=== PATIENT | female | born 1940 | race Caucasian/White ===

== ENCOUNTER 2017-04-20 18:33 | Inpatient (IN) | payer OTHER ==
[2017-04-20 19:03] VITALS: BMI 18.8
--- NOTE | 2017-04-20 19:40 | PDOC ---
History of Present Illness - General Chief Complaint: Revisit,Radiology Variance Stated Complaint: ABNORMAL LABS Time Seen by Provider: 04/20/17 19:37 - History of Present Illness Initial Comments: 04/20/17 20:41 Patient is a 76 year old female with a history of HTN, Dementia, GERD, PVD, COPD who presents via EMS following a fall at a rehab center. She reports that she lost her balance in the bathroom and fell onto her hip. Per rehab notes sent with the patient, the patient was found sitting in the bathroom following the fall. She received a hip radiograph which demonstrated a slightly displaced left intertrochanter fracture and was sent to the ED for further evaluation. She reports left hip pain and decreased range of motion secondary to pain. She denies any numbness or tingling in her lower extremities. She denies any other symptoms including chest pain, SOB, abdominal pain, or changes with urination or bowel movements. Past History - Past Medical History Allergies/Adverse Reactions: Allergies Allergy/AdvReac Type Severity Reaction Status Date / Time No Known Allergies Allergy Verified 04/20/17 20:44 Home Medications: Ambulatory Orders Aa/Hydrolyzed Collagen, Whey [Lps Neutral Flavor Liquid] 30 ml PO DAILY Acetaminophen [Pain Relief] 650 mg PO TID PRN 04/20/17 Albuterol 2.5/Ipratropium 0.5 [Duoneb -] 1 neb IH TID 04/20/17 Ascorbic Acid [Vitamin C -] 500 mg PO TID 04/20/17 Bacitracin 30 gm TP DAILY 04/20/17 Clopidogrel Bisulfate [Plavix -] 75 mg PO DAILY 04/20/17 Docusate Sodium 100 mg PO HS 04/20/17 Famotidine 20 mg PO DAILY 04/20/17 Ferrous Sulfate 325 mg PO TID 04/20/17 Melatonin 6 mg PO HS 04/20/17 Memantine HCl [Namenda -] 5 mg PO BID 04/20/17 Multivit with Iron-Minerals [Complete Senior] 1 each PO DAILY 04/20/17 Nadolol 40 mg PO DAILY 04/20/17 Oxybutynin Chloride 5 mg PO BID 04/20/17 Oxycodone HCl 5 mg PO TID PRN 04/20/17 Sennosides [Senna] 8.6 mg PO HS 04/20/17 Sucralfate [Carafate -] 1 gm PO QID 04/20/17 Trazodone HCl 50 mg PO HS 04/20/17 Cardiac Disorders: No (hypokalemia) COPD: Yes Other medical history: osteoporosis. - Psycho/Social/Smoking Cessation Hx Anxiety: No Suicidal Ideation: No Smoking History: Never smoked Have you smoked in the past 12 months: No Information on smoking cessation initiated: No Hx Alcohol Use: No Drug/Substance Use Hx: No Substance Use Type: None Review of Systems - Review of Systems Constitutional: No: Chills, Fever Respiratory: No: Cough, Shortness of Breath Cardiac (ROS): No: Chest Pain, Lightheadedness, Palpitations ABD/GI: No: Constipated, Diarrhea, Nausea, Vomiting : No: Dysuria Integumentary: No: Rash Neurological: No: Headache, Numbness, Tingling, Weakness *Physical Exam - Vital Signs Last Vital Signs Temp Pulse Resp BP Pulse Ox 101.2 F H 77 18 198/91 100 04/20/17 18:35 04/20/17 18:35 04/20/17 18:35 04/20/17 18:35 04/20/17 18:35 - Physical Exam Comments: 04/20/17 20:57 General Appearance: Nourished. No Apparent Distress HEENT: No Pharyngeal Erythema, Tonsillar Exudate, Tonsillar Erythema Respiratory/Chest: Lungs Clear, Normal Breath Sounds. No Rales, Rhonchi, Wheezing Cardiovascular: Regular Rhythm, Regular Rate. No Murmur, Gallop/S3, Gallop/S4 Gastrointestinal/Abdominal: Normal Bowel Sounds, Soft. No Guarding, Rebound, Tenderness Extremity: Normal Capillary Refill, Pain on ranging of the left hip. Sensation to light touch and temperature intact in the distal extremities Integumentary: Normal Color, Dry, Warm Neurologic: Alert, Normal Mood/Affect, Normal Response ED Treatment Course - LABORATORY CBC & Chemistry Diagram: 04/20/17 20:00 04/20/17 20:00 Medical Decision Making - Medical Decision Making 04/20/17 21:32 Patient is a 76 year old female who presents with left hip pain following an unwitnessed mechanical fall. Patient is febrile here in the ED and given her fever we will work her up for possible sepsis including a cbc, cmp, lactate, chest radiograph and UA. We will obtain imaging of her hip given the outside report of a hip fracture. We will also get a head ct to rule out any intracranial process. 04/21/17 01:52 Patient's labs including cbc, cmp, lactate, and UA are unremarkable with no elevated WBC or lactate. Chest radiograph is unremarkable and head CT doesn't demonstrate any acute process. Hip radiographs demonstrate an acute intertrochanteric fracture as preliminarily read by our healthcare administration intern radiologist. We believe the patient requires admission and will discuss with the admitting physician. 04/21/17 03:05 Discussed the case with Dr. Delgadillo who agreed with admission of the patient. We will order an orthopedic consultation as well. *DC/Admit/Observation/Transfer Diagnosis at time of Disposition: Fever of unknown origin Hip fracture Qualifiers: Encounter type: initial encounter Fracture type: closed Laterality: left Qualified Code(s): S72.002A - Fracture of unspecified part of neck of left femur , initial encounter for closed fracture - Discharge Dispostion Condition at time of disposition: Stable Admit: Yes - Referrals Referrals: Marbin Couch MD [Primary Care Provider] - - Attestations Physician Attestion: 04/21/17 03:05 I, Dr. Barrie Castellanos, attest that this document has been prepared under my direction and personally reviewed by me in its entirety. I further attest, that it accurately reflects all work, treatment, procedures and medical decision -making performed by me.
[2017-04-20] MEDS ORDERED: ACETAMINOPHEN INJECTION 100 ML IVPB ONE (20:04)
[2017-04-20] MEDS ORDERED: ACETAMINOPHEN 1000 MG/100 ML VIAL (NON FORMULARY) IVPB ONE (20:13)
[2017-04-20] MEDS ORDERED: SODIUM CHLORIDE 1,000 ML IV STA (20:13)
[2017-04-20 20:30] LABS: BASOPHIL 0.1 % (0-2.0); EOSINOPHIL 0.3 % (0-4.5); MCH 27.8 pg (25.7-33.7); MCHC 32.5 g/dl (32.0-36.0); MEAN CELL VOLUME 85.5 fl (80-96); MEAN PLT VOLUME 9.8 fl (7.5-11.1); NEUTROPHILS 77.4 % (42.8-82.8); PLATELET COUNT 232 K/MM3 (134-434); RDW 14.4 % (11.6-15.6); WHITE BLOOD COUNT 8.7 K/mm3 (4.0-10.0)
[2017-04-20 20:34] LABS: VENOUS BLOOD GAS HCO3 25.7 meq/L (19-25); VENOUS PH 7.37 (7.32-7.42)
[2017-04-20 20:47] LABS: URINE APPEARANCE CLEAR; URINE BILIRUBIN NEGATIVE (NEGATIVE); URINE BLOOD 1+ (NEGATIVE); URINE COLOR STRAW; URINE GLUCOSE (UA) NEGATIVE (NEGATIVE); URINE KETONE TRACE (NEGATIVE); URINE LEUK ESTERASE NEGATIVE (NEGATIVE); URINE NITRITE NEGATIVE (NEGATIVE); URINE UROBILINOGEN NEGATIVE mg/dL (0.2-1.0)
[2017-04-20 20:52] LABS: ALBUMIN 3.5 g/dl (3.4-5.0); ANION GAP 10 (8-16); BILIRUBIN,TOTAL 0.6 mg/dL (0.2-1.0); CALCIUM 9.2 mg/dL (8.5-10.1); CO2 27 mmol/L (21-32); CREATININE 0.5 mg/dL (0.55-1.02); GLUCOSE,RANDOM 109 mg/dL (74-106); SGOT/AST 16 U/L (15-37); SGPT/ALT 16 U/L (12-78); TOT PROT 7.5 g/dl (6.4-8.2)
--- NOTE | 2017-04-20 20:53 | PDOC ---
Attending Attestation - Resident Resident Name: Barrie Castellanos - ED Attending Attestation I have performed the following: I have examined & evaluated the patient, The case was reviewed & discussed with the resident, I agree w/resident's findings & plan, Exceptions are as noted - HPI HPI: 04/20/17 20:51 Agree with the resident's HPI as documented in the electronic medical record. - Physicial Exam PE: 04/20/17 20:51 Agree with the resident's physical examination as documented in the electronic medical record. - Medical Decision Making 04/20/17 20:51 76-year-old female long-term resident with history of dementia, hypertension , GERD, COPD who presents the emergency department for evaluation status post unwitnessed fall this morning with resultant left hip fracture. The patient is febrile in the emergency department to 101.2F. Differential diagnosis includes but is not limited to: Sepsis, UTI versus pneumonia, traumatic left hip fracture , dehydration, electrolyte abnormality, toxic/metabolic derangement. Plan: 1. Labs 2. Chest x-ray 3. Plain films of pelvis and left hip 4. Urine analysis and urine culture 4. Blood cultures 5. IV antibiotics 6. IV fluids for hydration 7. Antipyretics 8. Pain management 9. Admit 10. Orthopedics consult 11. Observe and reevaluate
[2017-04-20 20:54] LABS: ALK PHOS 95 U/L (45-117); CPK 20 IU/L (26-192); TROPONIN I < 0.02 ng/ml (0.00-0.05)
[2017-04-20 20:58] LABS: URINE PROTEIN 1+ (NEGATIVE)
[2017-04-20 20:59] LABS: URINE RBC 2 /hpf (0-3); URINE WBC 1 /hpf (3-5)
[2017-04-20 21:03] LABS: INR 1.2 (0.82-1.09); PROTHROMBIN TIME (PATIENT) 13.2 SEC (9.98-11.88)
[2017-04-20 21:05] LABS: ACTIVATED PTT 34.1 SECONDS (26.9-34.4)
[2017-04-20] MEDS ORDERED: PIPERACILLIN/TAZOB 3.375 GM 3.375 GM in DEXTROSE 5%-WATER - 50 ML IVPB ONE (21:18)
[2017-04-20] MEDS ORDERED: PIPERACILLIN/TAZOB 3.375 GM 50 ML IVPB ONE (21:53)
[2017-04-21] MEDS ORDERED: oxyCODONE HCL 5 MG TABLET PO PRN (03:42)
[2017-04-21] MEDS ORDERED: ACETAMINOPHEN 325 MG TABLET (FP) PO PRN (03:46)
[2017-04-21] MEDS ORDERED: FERROUS SO4 325 MG TABLET (FP) ONE (05:54)
[2017-04-21] MEDS ORDERED: ALBUTEROL SO4 2.5/IPRATROPIUM 0.5 INH SOL 3 ML VIAL.NEB. NEB ONE (05:54)
[2017-04-21] MEDS ORDERED: ALBUTEROL SO4 2.5/IPRATROPIUM 0.5 INH SOL 3 ML VIAL.NEB. NEB SCH (06:00)
[2017-04-21] MEDS ORDERED: FERROUS SO4 325 MG TABLET (FP) PO SCH (06:00)
[2017-04-21] MEDS: ASCORBIC ACID 500 MG TABLET (FP) PO SCH ×3 (06:09→21:47)
[2017-04-21 08:03] LABS: BASOPHIL 0.4 % (0-2.0); EOSINOPHIL 3.7 % (0-4.5); MCH 28.6 pg (25.7-33.7); MCHC 33.9 g/dl (32.0-36.0); MEAN CELL VOLUME 84.3 fl (80-96); MEAN PLT VOLUME 8.8 fl (7.5-11.1); NEUTROPHILS 67.7 % (42.8-82.8); PLATELET COUNT 202 K/MM3 (134-434); RDW 14.8 % (11.6-15.6); WHITE BLOOD COUNT 7.3 K/mm3 (4.0-10.0)
[2017-04-21 08:19] LABS: ALBUMIN 3.1 g/dl (3.4-5.0); ALK PHOS 85 U/L (45-117); ANION GAP 9 (8-16); BILIRUBIN,TOTAL 0.6 mg/dL (0.2-1.0); CALCIUM 8.9 mg/dL (8.5-10.1); CO2 27 mmol/L (21-32); CREATININE 0.6 mg/dL (0.55-1.02); GLUCOSE,RANDOM 99 mg/dL (74-106); SGOT/AST 12 U/L (15-37); TOT PROT 6.6 g/dl (6.4-8.2)
[2017-04-21 08:23] LABS: INR 1.26 (0.82-1.09); PROTHROMBIN TIME (PATIENT) 13.9 SEC (9.98-11.88)
[2017-04-21 08:25] LABS: ACTIVATED PTT 33.4 SECONDS (26.9-34.4)
[2017-04-21 08:27] LABS: SGPT/ALT 14 U/L (12-78)
[2017-04-21 08:37] LABS: MAGNESIUM 1.7 mg/dL (1.8-2.4)
--- NOTE | 2017-04-21 08:43 | HP ---
Admitting History and Physical - Primary Care Physician PCP: Marbin Couch - Admission Chief Complaint: S/P Fall hip pain History of Present Illness: 76 yo female with significant past medical history of hypertension, dementia, overactive bladder, right foot infection, admitted to [facility], s/p fall with left intertrochanteric fracture. Patient seen and examined. C/O Pain left hip joint. Denies chest pain, shortness of breath, palpitation or dizziness. Denies headache or blurring of vision. Denies dysuria or hematuria. Denies nausea, vomiting, abdominal pain. H/O right hip surgery 10 yrs back. Patient had low grade fever last night. She received a dose of zosyn in the ER last night and now on rocephin. 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 - Smoking History Smoking history: Never smoked Have you smoked in the past 12 months: No - Alcohol/Substance Use Hx Alcohol Use: No Home Medications - Allergies Allergies/Adverse Reactions: Allergies Allergy/AdvReac Type Severity Reaction Status Date / Time No Known Allergies Allergy Verified 04/20/17 20:44 - Home Medications Home Medications: Ambulatory Orders Aa/Hydrolyzed Collagen, Whey [Lps Neutral Flavor Liquid] 30 ml PO DAILY Acetaminophen [Pain Relief] 650 mg PO TID PRN 04/20/17 Albuterol 2.5/Ipratropium 0.5 [Duoneb -] 1 neb IH TID 04/20/17 Ascorbic Acid [Vitamin C -] 500 mg PO TID 04/20/17 Bacitracin 30 gm TP DAILY 04/20/17 Clopidogrel Bisulfate [Plavix -] 75 mg PO DAILY 04/20/17 Docusate Sodium 100 mg PO HS 04/20/17 Famotidine 20 mg PO DAILY 04/20/17 Ferrous Sulfate 325 mg PO TID 04/20/17 Melatonin 6 mg PO HS 04/20/17 Memantine HCl [Namenda -] 5 mg PO BID 04/20/17 Multivit with Iron-Minerals [Complete Senior] 1 each PO DAILY 04/20/17 Nadolol 40 mg PO DAILY 04/20/17 Oxybutynin Chloride 5 mg PO BID 04/20/17 Oxycodone HCl 5 mg PO TID PRN 04/20/17 Sennosides [Senna] 8.6 mg PO HS 04/20/17 Sucralfate [Carafate -] 1 gm PO QID 04/20/17 Trazodone HCl 50 mg PO HS 04/20/17 Review of Systems - Review of Systems Constitutional: reports: Fever Eyes: reports: No Symptoms HENT: reports: No Symptoms Neck: reports: No Symptoms Cardiovascular: reports: No Symptoms Respiratory: reports: No Symptoms Gastrointestinal: reports: No Symptoms Genitourinary: reports: No Symptoms Musculoskeletal: reports: Extremity Pain, Joint Pain Neurological: reports: No Symptoms Endocrine: reports: No Symptoms Hematology/Lymphatic: reports: No Symptoms Psychiatric: reports: No Symptoms Physical Examination Vital Signs: Vital Signs Temperature 97.6 F 04/21/17 06:00 Pulse Rate 58 L 04/21/17 06:00 Respiratory Rate 18 04/21/17 06:00 Blood Pressure 153/79 04/21/17 06:00 O2 Sat by Pulse Oximetry (%) 100 04/21/17 06:00 Constitutional: Yes: Anxious Eyes: Yes: Conjunctiva Clear, PERRL HENT: Yes: Atraumatic, Normocephalic Neck: Yes: Supple, Trachea Midline Cardiovascular: Yes: Regular Rate and Rhythm Respiratory: Yes: Regular, CTA Bilaterally Gastrointestinal: Yes: Normal Bowel Sounds, Soft Musculoskeletal: Yes: Joint Swelling Edema: No Peripheral Pulses WNL: Yes Neurological: Yes: Alert, Oriented ...Motor Strength: WNL Psychiatric: Yes: WNL Labs: CBC, BMP 04/21/17 07:36 04/21/17 07:36 Imaging - Results Chest X-ray: Report Reviewed X-ray: Report Reviewed Problem List - Problems (1) Intertrochanteric fracture of left femur Assessment/Plan: S/P Fall. Ortho consulted. Patient scheduled for surgery later today. There are no absolute medical contraindications for the surgery. Patient is medically cleared for the surgery. Code(s): S72.142A - DISPLACED INTERTROCHANTERIC FRACTURE OF LEFT FEMUR, INIT (2) Hypertension Assessment/Plan: High. Continue Nadolol 40 mg daily. Code(s): I10 - ESSENTIAL (PRIMARY) HYPERTENSION (3) Fever of unknown origin Assessment/Plan: Low grade last night. None since morning. Wbc - normal. Urine culture/blood culture sent. Chest x ray - Nil acute. Patient is asymptomatic. Received a dose of zosyn last night. On rocephin now. Will continue to monitor. Code(s): R50.9 - FEVER, UNSPECIFIED (4) Hypokalemia Assessment/Plan: Repleted. Code(s): E87.6 - HYPOKALEMIA
[2017-04-21] MEDS ORDERED: BACITRACIN 15 GM TUBE TOPICAL OINTMENT TP SCH (10:00)
[2017-04-21] MEDS ORDERED: MULTIVITAMINS THER W-MINERALS COMBO TABLET (FP) PO SCH (10:00)
[2017-04-21] MEDS ORDERED: CLOPIDOGREL BISULFATE 75 MG TABLET (FP) PO SCH (10:00)
[2017-04-21] MEDS ORDERED: CEFTRIAXONE 50 ML IVPB SCH (10:00)
[2017-04-21] MEDS ORDERED: RANITIDINE HCL 150 MG TABLET (FP) PO SCH (10:00)
[2017-04-21] MEDS ORDERED: SUCRALFATE 1 GM TABLET (FP) PO SCH (10:00)
[2017-04-21] MEDS ORDERED: MEMANTINE HCL 5 MG TABLET (UD) PO SCH (10:00)
[2017-04-21] MEDS ORDERED: NADOLOL 40 MG TABLET (FP) PO SCH (10:00)
[2017-04-21] MEDS ORDERED: CEFTRIAXONE 50 ML ONE (10:57)
[2017-04-21] MEDS ORDERED: oxyCODONE HCL 5 MG TABLET ONE (10:57)
[2017-04-21] MEDS ORDERED: POTASSIUM CHLORIDE 20 MEQ PREMIX IVPB 100 ML IVPB SCH (11:15)
--- NOTE | 2017-04-21 12:25 | EKG ---
Test Reason : Blood Pressure : / mmHG Vent. Rate : 065 BPM Atrial Rate : 065 BPM P-R Int : 152 ms QRS Dur : 084 ms QT Int : 444 ms P-R-T Axes : 067 041 023 degrees QTc Int : 461 ms NORMAL SINUS RHYTHM POSSIBLE LEFT ATRIAL ENLARGEMENT LEFT VENTRICULAR HYPERTROPHY POSSIBLE INFERIOR INFARCT , AGE UNDETERMINED NONSPECIFIC ST ABNORMALITY ABNORMAL ECG NO PREVIOUS ECGS AVAILABLE REPEAT EKG IF CLINICALLY INDICATED Confirmed by HENRIK FAN MD ([id number]) on 04/21/2017 12:25:19 PM Referred By: Confirmed By:HENRIK FAN MD
[2017-04-21] MEDS ORDERED: KCL 10 MEQ IVPB 100 ML IVPB SCH (12:30)
[2017-04-21] MEDS ORDERED: KCL 10 MEQ IVPB 100 ML IVPB ONE (13:19)
--- NOTE | 2017-04-21 13:53 | CON.ORTH ---
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 - Alcohol/Substance Use Hx Alcohol Use: No - Smoking History Smoking history: Never smoked Have you smoked in the past 12 months: No Home Medications - Allergies Allergies/Adverse Reactions: Allergies Allergy/AdvReac Type Severity Reaction Status Date / Time No Known Allergies Allergy Verified 04/20/17 20:44 - Home Medications Home Medications: Ambulatory Orders Aa/Hydrolyzed Collagen, Whey [Lps Neutral Flavor Liquid] 30 ml PO DAILY Acetaminophen [Pain Relief] 650 mg PO Q6H PRN 04/20/17 Albuterol 2.5/Ipratropium 0.5 [Duoneb -] 1 neb IH TID 04/20/17 Ascorbic Acid [Vitamin C -] 500 mg PO TID 04/20/17 Bacitracin 30 gm TP DAILY 04/20/17 Clopidogrel Bisulfate [Plavix -] 75 mg PO DAILY 04/20/17 Docusate Sodium 100 mg PO HS 04/20/17 Famotidine 20 mg PO DAILY 04/20/17 Ferrous Sulfate 325 mg PO TID 04/20/17 Melatonin 6 mg PO HS 04/20/17 Memantine HCl [Namenda -] 5 mg PO BID 04/20/17 Multivit with Iron-Minerals [Complete Senior] 1 each PO DAILY 04/20/17 Nadolol 40 mg PO DAILY 04/20/17 Oxybutynin Chloride 5 mg PO BID 04/20/17 Oxycodone HCl 5 mg PO TID PRN 04/20/17 Sennosides [Senna] 8.6 mg PO HS 04/20/17 Sucralfate [Carafate -] 1 gm PO QID 04/20/17 Trazodone HCl 50 mg PO HS 04/20/17 Physical Exam for Ortho Vital Signs: Vital Signs Temperature 98.5 F 04/21/17 07:30 Pulse Rate 66 04/21/17 10:15 Respiratory Rate 18 04/21/17 10:15 Blood Pressure 169/69 04/21/17 10:15 O2 Sat by Pulse Oximetry (%) 97 04/21/17 10:15 Labs: CBC, BMP 04/21/17 07:36 04/21/17 07:36 INR, PTT INR 1.26 (0.82-1.09) H 04/21/17 07:36 - Lower Extremity Hip: Yes: Left, Decreased ROM, Leg Externally Rotated, Leg Shortened, Pain, Swelling, Other (nvi) Imaging - Results X-ray: Report Reviewed, Image Reviewed Assessment/Plan 76 year old female with a history of HTN, Dementia, GERD, PVD, COPD who presents via EMS following a fall at a rehab center. She reports that she lost her balance in the bathroom and fell onto her left hip. She reports left hip pain and decreased range of motion secondary to pain. She denies any numbness or tingling in her lower extremities. She denies any other symptoms including chest pain, SOB, abdominal pain, or changes with urination or bowel movements. a/p Left displaced IT fx Risks and benefits were d.w pt in detail OR for left IM gamma nail Pt is surgical cleared as per medicine NPO OR for this afternoon d/w Dr. Voss
[2017-04-21] MEDS ORDERED: LIDOCAINE HCL/PF 2% SDV 5ML VIAL ONE (15:34)
[2017-04-21] MEDS ORDERED: PROPOFOL 20 ML ONE (15:34)
[2017-04-21] MEDS ORDERED: ceFAZolin SODIUM 1 GM VIAL ONE (15:35)
[2017-04-21] MEDS ORDERED: ceFAZolin SODIUM 1 GM VIAL IVPB ONE (15:50)
--- NOTE | 2017-04-21 16:34 | OP ---
Operative Note - Note: Operative Date: 04/21/17 Pre-Operative Diagnosis: LEFT IT HIP FX Operation: LEFT GAMMA NAILING Post-Operative Diagnosis: Same as Pre-op Surgeon: Abiel Voss Anesthesia: General Estimated Blood Loss (mls): 0 Operative Report Dictated: Yes
--- NOTE | 2017-04-21 16:53 | SPEC ---
DATE OF OPERATION: 04/21/2017 OPERATION: Left Gamma nailing. PREOPERATIVE DIAGNOSIS: Left intertrochanteric hip fracture. POSTOPERATIVE DIAGNOSIS: Left intertrochanteric hip fracture. SURGEON: Abiel Voss M.D. ANESTHESIA: General LMA. CLOSURE: A short Gamma nail with appropriate interlocks. No. 1 Vicryl for fascia, 0-0 and 2-0 for subcutaneous, and ludivina for skin. ESTIMATED BLOOD LOSS: Negligible. COMPLICATIONS: None. CONDITION: Recovery room in stable condition. DESCRIPTION OF OPERATIVE PROCEDURE: The patient was taken to the operating room. Spinal anesthesia was administered by the anesthesiologist. IV antibiotic prophylaxis was administered prior to the case. Patient was fastened to the fracture table with all prominences well padded. The left hip fracture was reduced and confirmation of excellent reduction from the AP and lateral planes was established using the image intensifier. A small 1-inch incision was made at the greater tip of the greater trochanter. Hemostasis was achieved with Bovie cautery. Sharp dissection was carried through the fascia. The K-wire was drilled from the tip of the greater trochanter past the fracture, into the intramedullary canal. Proper placement confirmed the AP and lateral planes by using the image intensifier. This was overreamed with a proximal reamer using the tissue protector to protect the soft tissue in the region. A short Gamma nail was then malletted down into place into the intramedullary canal to the appropriate level. Using the outrigger and a small stab incision laterally, a Guidewire was drilled from one aspect of the femur through the femoral neck into the femoral head. Proper placement was confirmed of the AP and lateral planes using image intensifier. The wire was measured for length and was overreamed with a triple reamer and was screwed with the appropriate-length lag screw. Confirmation of appropriate depth was confirmed in the AP and lateral planes by using image intensifier. Traction was reduced. The compression device was used to compress the fracture and a screw was placed from above in a dynamic fashion. Again, using the outrigger and a small stab incision laterally, the distal locking screw was placed by drilling and an appropriate-sized screw. The outrigger was removed. Confirmation of excellent reduction was confirmed in the AP and lateral planes by using image intensifier with excellent position of the hardware. All incisions were irrigated with copious amounts of irrigation. The fascia was closed with 0 Vicryl, 2-0 for subcutaneous and 3-0 Monocryl subcuticular for skin. A sterile pressure dressing was applied. The patient was awakened from anesthesia and transferred to recovery room in stable condition. No complications. Estimated blood loss less than 100 mL. Ace [id number]
[2017-04-21] MEDS ORDERED: CEFAZOLIN 1 GM/D5W 50 ML IVPB SCH ×2 (18:00→23:00)
[2017-04-21] MEDS ORDERED: SODIUM CHLORIDE 500 ML IV ONE (19:00)
[2017-04-21] MEDS: LACTATED RINGERS SOLUTION 1,000 ML IV SCH (19:30)
[2017-04-21] MEDS: ALBUTEROL SO4 2.5/IPRATROPIUM 0.5 INH SOL 3 ML VIAL.NEB. NEB SCH (21:29)
[2017-04-21] MEDS: SENNOSIDES 8.6MG TABLET (FP) PO SCH (21:45)
[2017-04-21] MEDS: FERROUS SO4 325 MG TABLET (FP) PO SCH (21:45)
[2017-04-21] MEDS: SUCRALFATE 1 GM TABLET (FP) PO SCH (21:46)
[2017-04-21] MEDS: MEMANTINE HCL 5 MG TABLET (UD) PO SCH (21:46)
[2017-04-21] MEDS: oxyCODONE HCL 5 MG TABLET PO PRN (21:46)
[2017-04-21] MEDS: DOCUSATE SODIUM 100 MG CAPSULE (FP) PO SCH (21:46)
[2017-04-21] MEDS: traZODone HCL 50 MG TABLET (FP) PO SCH (21:47)
[2017-04-21] MEDS ORDERED: MELATONIN 1 MG, MELATONIN 5 MG PO SCH (22:00)
[2017-04-21] MEDS ORDERED: SENNOSIDES 8.6MG TABLET (FP) PO SCH (22:00)
[2017-04-21] MEDS ORDERED: DOCUSATE SODIUM 100 MG CAPSULE (FP) PO SCH (22:00)
[2017-04-21] MEDS ORDERED: traZODone HCL 50 MG TABLET (FP) PO SCH (22:00)
[2017-04-22] MEDS ORDERED: CEFAZOLIN 1 GM/D5W 50 ML IVPB SCH
[2017-04-22] MEDS: LACTATED RINGERS SOLUTION 1,000 ML IV SCH (01:12)
[2017-04-22] MEDS ORDERED: ceFAZolin SODIUM 1 GM VIAL ONE ×2 (01:16→09:51)
[2017-04-22] MEDS ORDERED: DEXTROSE 5%-WATER - 50 ML IVPB ONE ×2 (01:16→09:51)
[2017-04-22] MEDS: CEFAZOLIN 1 GM in DEXTROSE 5%-WATER - 50 ML IVPB SCH ×2 (01:18→09:59)
[2017-04-22] MEDS: ACETAMINOPHEN 325 MG TABLET (FP) PO PRN ×2 (01:18→20:10)
[2017-04-22] MEDS ORDERED: oxyCODONE HCL 5 MG TABLET PO ONE (01:30)
[2017-04-22] MEDS: ASCORBIC ACID 500 MG TABLET (FP) PO SCH ×3 (05:47→21:48)
[2017-04-22] MEDS: FERROUS SO4 325 MG TABLET (FP) PO SCH ×3 (05:47→21:47)
[2017-04-22] MEDS: ALBUTEROL SO4 2.5/IPRATROPIUM 0.5 INH SOL 3 ML VIAL.NEB. NEB SCH ×3 (06:09→22:30)
[2017-04-22 08:57] LABS: BASOPHIL 0.3 % (0-2.0); EOSINOPHIL 0.7 % (0-4.5); MCH 28.1 pg (25.7-33.7); MCHC 32.6 g/dl (32.0-36.0); MEAN CELL VOLUME 86.2 fl (80-96); MEAN PLT VOLUME 9.2 fl (7.5-11.1); NEUTROPHILS 67.9 % (42.8-82.8); PLATELET COUNT 187 K/MM3 (134-434); RDW 14.7 % (11.6-15.6); WHITE BLOOD COUNT 6.6 K/mm3 (4.0-10.0)
[2017-04-22 09:08] LABS: ALBUMIN 2.8 g/dl (3.4-5.0); ALK PHOS 73 U/L (45-117); ANION GAP 12 (8-16); BILIRUBIN,TOTAL 0.6 mg/dL (0.2-1.0); CALCIUM 8.8 mg/dL (8.5-10.1); CO2 23 mmol/L (21-32); CREATININE 0.6 mg/dL (0.55-1.02); GLUCOSE,RANDOM 87 mg/dL (74-106); SGOT/AST 14 U/L (15-37); SGPT/ALT 12 U/L (12-78)
[2017-04-22] MEDS: RANITIDINE HCL 150 MG TABLET (FP) PO SCH (09:58)
[2017-04-22] MEDS: MULTIVITAMINS THER W-MINERALS COMBO TABLET (FP) PO SCH (09:58)
[2017-04-22] MEDS: ASPIRIN 325 MG TABLET PO SCH (09:58)
[2017-04-22] MEDS: MEMANTINE HCL 5 MG TABLET (UD) PO SCH ×2 (09:59→21:49)
[2017-04-22] MEDS: SUCRALFATE 1 GM TABLET (FP) PO SCH ×5 (09:59→21:47)
[2017-04-22] MEDS: ENOXAPARIN NA (PORCINE) 40 MG/0.4 ML DISP.SYRIN SQ SCH (09:59)
[2017-04-22] MEDS ORDERED: CEFTRIAXONE 50 ML IVPB SCH (10:00)
[2017-04-22] MEDS ORDERED: ENOXAPARIN NA (PORCINE) 40 MG/0.4 ML DISP.SYRIN SQ SCH (10:00)
[2017-04-22] MEDS ORDERED: CEFTRIAXONE 1 GM in DEXTROSE 5%-WATER - 50 ML IVPB SCH (10:19)
--- NOTE | 2017-04-22 10:34 | PN ---
Progress Note (short form) - Note Progress Note: AVSS COMFORTABLE BANDAGES DRY AND INTACT CALF SOFT AND NT NVI HCT=28 IMP: DOING WELL PLAN: OOB, PT, DC PLANNING
--- NOTE | 2017-04-22 11:57 | PN ---
Progress Note (short form) - Note Progress Note: Patient seen and examined. POD#1 Awake, slightly confused. C/O Pain B/L lower extremities. Afebrile. Denies chest pain, shortness of breath, palpitation or dizziness. 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 - Smoking History Smoking history: Never smoked Have you smoked in the past 12 months: No - Alcohol/Substance Use Hx Alcohol Use: No Home Medications - Allergies Allergies/Adverse Reactions: Allergies Allergy/AdvReac Type Severity Reaction Status Date / Time No Known Allergies Allergy Verified 04/20/17 20:44 - Home Medications Home Medications: Ambulatory Orders Aa/Hydrolyzed Collagen, Whey [Lps Neutral Flavor Liquid] 30 ml PO DAILY Acetaminophen [Pain Relief] 650 mg PO TID PRN 04/20/17 Albuterol 2.5/Ipratropium 0.5 [Duoneb -] 1 neb IH TID 04/20/17 Ascorbic Acid [Vitamin C -] 500 mg PO TID 04/20/17 Bacitracin 30 gm TP DAILY 04/20/17 Clopidogrel Bisulfate [Plavix -] 75 mg PO DAILY 04/20/17 Docusate Sodium 100 mg PO HS 04/20/17 Famotidine 20 mg PO DAILY 04/20/17 Ferrous Sulfate 325 mg PO TID 04/20/17 Melatonin 6 mg PO HS 04/20/17 Memantine HCl [Namenda -] 5 mg PO BID 04/20/17 Multivit with Iron-Minerals [Complete Senior] 1 each PO DAILY 04/20/17 Nadolol 40 mg PO DAILY 04/20/17 Oxybutynin Chloride 5 mg PO BID 04/20/17 Oxycodone HCl 5 mg PO TID PRN 04/20/17 Sennosides [Senna] 8.6 mg PO HS 04/20/17 Sucralfate [Carafate -] 1 gm PO QID 04/20/17 Trazodone HCl 50 mg PO HS 04/20/17 Review of Systems - Review of Systems Constitutional: reports: Fever Eyes: reports: No Symptoms HENT: reports: No Symptoms Neck: reports: No Symptoms Cardiovascular: reports: No Symptoms Respiratory: reports: No Symptoms Gastrointestinal: reports: No Symptoms Genitourinary: reports: No Symptoms Musculoskeletal: reports: Extremity Pain, Joint Pain Neurological: reports: No Symptoms Endocrine: reports: No Symptoms Hematology/Lymphatic: reports: No Symptoms Psychiatric: reports: No Symptoms Physical Examination Vital Signs: Vital Signs Period Temp Pulse Resp BP Sys/Gonsalez Pulse Ox Last 24 Hr 97.3 F-99.9 F 57-86 12-22 102-182/48-92 95-100 Constitutional: Yes: Anxious Eyes: Yes: Conjunctiva Clear, PERRL HENT: Yes: Atraumatic, Normocephalic Neck: Yes: Supple, Trachea Midline Cardiovascular: Yes: Regular Rate and Rhythm Respiratory: Yes: Regular, CTA Bilaterally Gastrointestinal: Yes: Normal Bowel Sounds, Soft Musculoskeletal: Yes: Joint Swelling Edema: No Peripheral Pulses WNL: Yes Neurological: Yes: Alert, Oriented ...Motor Strength: WNL Psychiatric: Yes: WNL Labs: CBC, BMP 04/22/17 07:05 04/22/17 07:05 Imaging - Results Chest X-ray: Report Reviewed X-ray: Report Reviewed Problem List - Problems (1) Intertrochanteric fracture of left femur Assessment/Plan: S/P left gamma nailing. Pain management. Physical therapy. Code(s): S72.142A - DISPLACED INTERTROCHANTERIC FRACTURE OF LEFT FEMUR, INIT (2) Hypertension Assessment/Plan: Continue Nadolol 40 mg daily. Code(s): I10 - ESSENTIAL (PRIMARY) HYPERTENSION (3) Fever of unknown origin Assessment/Plan: Afberile. Prelim cultures - negative. Continue rocephin. Code(s): R50.9 - FEVER, UNSPECIFIED (4) Hypokalemia Assessment/Plan: Repleted. Code(s): E87.6 - HYPOKALEMIA Observe today. DC back to OR tomorrow. Problem List - Problems (1) Intertrochanteric fracture of left femur Code(s): S72.142A - DISPLACED INTERTROCHANTERIC FRACTURE OF LEFT FEMUR, INIT (2) Hypertension Code(s): I10 - ESSENTIAL (PRIMARY) HYPERTENSION (3) Fever of unknown origin Code(s): R50.9 - FEVER, UNSPECIFIED (4) Hypokalemia Code(s): E87.6 - HYPOKALEMIA
--- NOTE | 2017-04-22 12:56 | PN ---
Progress Note (short form) - Note Progress Note: Post op day#1.S/P Left hip gamma nailing under GA uneventful.Patient stable.No any anesthesia related problem.Patient DC from the anesthesia care.
[2017-04-22] MEDS ORDERED: PT OWN MED DRAWER 7, Y5N ONE (13:27)
[2017-04-22] MEDS: NADOLOL 40 MG TABLET (FP) PO SCH (15:07)
[2017-04-22] MEDS: oxyCODONE HCL 5 MG TABLET PO PRN (20:09)
[2017-04-22] MEDS: SENNOSIDES 8.6MG TABLET (FP) PO SCH (21:47)
[2017-04-22] MEDS: DOCUSATE SODIUM 100 MG CAPSULE (FP) PO SCH (21:47)
[2017-04-22] MEDS: traZODone HCL 50 MG TABLET (FP) PO SCH (21:48)
[2017-04-23] MEDS: oxyCODONE HCL 5 MG TABLET PO PRN ×3 (05:48→20:19)
[2017-04-23] MEDS: ASCORBIC ACID 500 MG TABLET (FP) PO SCH ×4 (05:48→22:09)
[2017-04-23] MEDS: ACETAMINOPHEN 325 MG TABLET (FP) PO PRN ×3 (05:48→18:14)
[2017-04-23] MEDS: FERROUS SO4 325 MG TABLET (FP) PO SCH ×4 (05:48→22:08)
[2017-04-23] MEDS: ALBUTEROL SO4 2.5/IPRATROPIUM 0.5 INH SOL 3 ML VIAL.NEB. NEB SCH ×3 (06:47→22:34)
[2017-04-23 07:53] LABS: BASOPHIL 0.3 % (0-2.0); EOSINOPHIL 2.6 % (0-4.5); MCH 28.2 pg (25.7-33.7); MCHC 33.5 g/dl (32.0-36.0); MEAN CELL VOLUME 84.2 fl (80-96); NEUTROPHILS 70.5 % (42.8-82.8); PLATELET COUNT 178 K/MM3 (134-434); RDW 14.7 % (11.6-15.6); WHITE BLOOD COUNT 6.6 K/mm3 (4.0-10.0)
[2017-04-23 08:28] LABS: ALBUMIN 2.4 g/dl (3.4-5.0); ALK PHOS 63 U/L (45-117); ANION GAP 9 (8-16); BILIRUBIN,TOTAL 0.5 mg/dL (0.2-1.0); CALCIUM 8.2 mg/dL (8.5-10.1); CO2 27 mmol/L (21-32); CREATININE 0.5 mg/dL (0.55-1.02); GLUCOSE,RANDOM 120 mg/dL (74-106); SGOT/AST 14 U/L (15-37); SGPT/ALT 9 U/L (12-78); TOT PROT 5.4 g/dl (6.4-8.2)
--- NOTE | 2017-04-23 09:10 | PN ---
Progress Note (short form) - Note Progress Note: Patient seen and examined. POD#2 Afebrile. Denies chest pain, shortness of breath, palpitation or dizziness. Limitations to Obtaining History: No Limitations - Past Medical History [employer]: Yes: Dementia Cardiovascular: Yes: HTN - Smoking History Smoking history: Never smoked Have you smoked in the past 12 months: No - Alcohol/Substance Use Hx Alcohol Use: No Home Medications - Allergies Allergies/Adverse Reactions: Allergies Allergy/AdvReac Type Severity Reaction Status Date / Time No Known Allergies Allergy Verified 04/20/17 20:44 - Home Medications Home Medications: Ambulatory Orders Aa/Hydrolyzed Collagen, Whey [Lps Neutral Flavor Liquid] 30 ml PO DAILY Acetaminophen [Pain Relief] 650 mg PO TID PRN 04/20/17 Albuterol 2.5/Ipratropium 0.5 [Duoneb -] 1 neb IH TID 04/20/17 Ascorbic Acid [Vitamin C -] 500 mg PO TID 04/20/17 Bacitracin 30 gm TP DAILY 04/20/17 Clopidogrel Bisulfate [Plavix -] 75 mg PO DAILY 04/20/17 Docusate Sodium 100 mg PO HS 04/20/17 Famotidine 20 mg PO DAILY 04/20/17 Ferrous Sulfate 325 mg PO TID 04/20/17 Melatonin 6 mg PO HS 04/20/17 Memantine HCl [Namenda -] 5 mg PO BID 04/20/17 Multivit with Iron-Minerals [Complete Senior] 1 each PO DAILY 04/20/17 Nadolol 40 mg PO DAILY 04/20/17 Oxybutynin Chloride 5 mg PO BID 04/20/17 Oxycodone HCl 5 mg PO TID PRN 04/20/17 Sennosides [Senna] 8.6 mg PO HS 04/20/17 Sucralfate [Carafate -] 1 gm PO QID 04/20/17 Trazodone HCl 50 mg PO HS 04/20/17 Review of Systems - Review of Systems Constitutional: reports: Fever Eyes: reports: No Symptoms HENT: reports: No Symptoms Neck: reports: No Symptoms Cardiovascular: reports: No Symptoms Respiratory: reports: No Symptoms Gastrointestinal: reports: No Symptoms Genitourinary: reports: No Symptoms Musculoskeletal: reports: Extremity Pain, Joint Pain Neurological: reports: No Symptoms Endocrine: reports: No Symptoms Hematology/Lymphatic: reports: No Symptoms Psychiatric: reports: No Symptoms Physical Examination Vital Signs: Vital Signs Period Temp Pulse Resp BP Sys/Gonsalez Pulse Ox Last 24 Hr 97.5 F-98.8 F 75-88 17-21 103-109/54-61 96 Constitutional: Yes: Anxious Eyes: Yes: Conjunctiva Clear, PERRL HENT: Yes: Atraumatic, Normocephalic Neck: Yes: Supple, Trachea Midline Cardiovascular: Yes: Regular Rate and Rhythm Respiratory: Yes: Regular, CTA Bilaterally Gastrointestinal: Yes: Normal Bowel Sounds, Soft Musculoskeletal: Yes: Joint Swelling Edema: No Peripheral Pulses WNL: Yes Neurological: Yes: Alert, Oriented ...Motor Strength: WNL Psychiatric: Yes: WNL Labs: CBC, BMP 04/23/17 06:00 Imaging - Results Chest X-ray: Report Reviewed X-ray: Report Reviewed Problem List - Problems (1) Intertrochanteric fracture of left femur Assessment/Plan: S/P left gamma nailing. POD#2 Pain management. Physical therapy. Code(s): S72.142A - DISPLACED INTERTROCHANTERIC FRACTURE OF LEFT FEMUR, INIT (2) Hypertension Assessment/Plan: Continue Nadolol 40 mg daily. Code(s): I10 - ESSENTIAL (PRIMARY) HYPERTENSION (3) Fever of unknown origin Assessment/Plan: Afberile. Prelim cultures - negative. Continue rocephin. Code(s): R50.9 - FEVER, UNSPECIFIED (4) Hypokalemia Assessment/Plan: Repleted. Code(s): E87.6 - HYPOKALEMIA 5) Anemia. Lorraine-operative blood loss minimal. No bleeding per rectum reported. Check stool for occult blood. Continue iron tid Check cbc afternoon. 6) UTI Culutres negative. Stop recephin. 7) Constipation Miralax now. 8) Hypokalemia KCL 40 meq one dose now. Check BMP afternoon and replete accordingly. Stop IV fluids. Problem List - Problems (1) Intertrochanteric fracture of left femur Code(s): S72.142A - DISPLACED INTERTROCHANTERIC FRACTURE OF LEFT FEMUR, INIT (2) Hypertension Code(s): I10 - ESSENTIAL (PRIMARY) HYPERTENSION (3) Fever of unknown origin Code(s): R50.9 - FEVER, UNSPECIFIED (4) Hypokalemia Code(s): E87.6 - HYPOKALEMIA
[2017-04-23] MEDS ORDERED: POLYETHYLENE GLYCOL 3350 119 GM BTL PO ONE (09:30)
[2017-04-23] MEDS ORDERED: POTASSIUM CHLORIDE TABS 20 MEQ TABLET.ER (FP) PO ONE (09:30)
[2017-04-23] MEDS ORDERED: PT OWN MED DRAWER 7, Y5N ONE ×2 (09:35→09:49)
[2017-04-23] MEDS: ENOXAPARIN NA (PORCINE) 40 MG/0.4 ML DISP.SYRIN SQ SCH (09:43)
[2017-04-23] MEDS: MEMANTINE HCL 5 MG TABLET (UD) PO SCH ×2 (09:43→22:08)
[2017-04-23] MEDS: MULTIVITAMINS THER W-MINERALS COMBO TABLET (FP) PO SCH (09:44)
[2017-04-23] MEDS: ASPIRIN 325 MG TABLET PO SCH (09:44)
[2017-04-23] MEDS: RANITIDINE HCL 150 MG TABLET (FP) PO SCH (09:44)
[2017-04-23] MEDS: SUCRALFATE 1 GM TABLET (FP) PO SCH ×5 (09:45→22:09)
[2017-04-23] MEDS: NADOLOL 40 MG TABLET (FP) PO SCH (09:46)
[2017-04-23] MEDS: BACITRACIN 15 GM TUBE TOPICAL OINTMENT TP SCH (10:19)
--- NOTE | 2017-04-23 10:37 | PN ---
Progress Note (short form) - Note Progress Note: Ortho Pt seen and examined s/p left IM gamma nail pod #2 Selected Entries 04/23/17 09:51 Temperature 97.9 F Pulse Rate 75 Respiratory 18 Rate Blood Pressure 101/50 Laboratory Tests 04/23/17 06:00 WBC 6.6 Hgb 7.8 L D Hct 23.2 L D Plt Count 178 dressing c/d/i, calf soft, nt nvi a/p f/u h/h PT dvt ppx pain control d/c planning
[2017-04-23 13:11] LABS: MCH 28.2 pg (25.7-33.7); MCHC 33.4 g/dl (32.0-36.0); MEAN CELL VOLUME 84.4 fl (80-96); MEAN PLT VOLUME 8.5 fl (7.5-11.1); PLATELET COUNT 180 K/MM3 (134-434); RDW 14.4 % (11.6-15.6); WHITE BLOOD COUNT 7.4 K/mm3 (4.0-10.0)
[2017-04-23 13:23] LABS: ANION GAP 4 (8-16); CALCIUM 8.4 mg/dL (8.5-10.1); CO2 31 mmol/L (21-32); CREATININE 0.5 mg/dL (0.55-1.02); GLUCOSE,RANDOM 102 mg/dL (74-106)
[2017-04-23] MEDS ORDERED: POTASSIUM CHLORIDE ORAL LIQUID 20 MEQ/15 ML PO ONE (14:07)
[2017-04-23] MEDS ORDERED: DOCUSATE SODIUM 100 MG CAPSULE (FP) PO SCH (22:00)
[2017-04-23] MEDS: traZODone HCL 50 MG TABLET (FP) PO SCH (22:08)
[2017-04-23] MEDS: SENNOSIDES 8.6MG TABLET (FP) PO SCH (22:08)
[2017-04-24 05:47] VITALS: PULSE 74
[2017-04-24] MEDS: FERROUS SO4 325 MG TABLET (FP) PO SCH (05:51)
[2017-04-24] MEDS: ASCORBIC ACID 500 MG TABLET (FP) PO SCH (05:51)
[2017-04-24] MEDS: oxyCODONE HCL 5 MG TABLET PO PRN (06:23)
[2017-04-24] MEDS: ALBUTEROL SO4 2.5/IPRATROPIUM 0.5 INH SOL 3 ML VIAL.NEB. NEB SCH ×3 (06:25→14:25)
--- NOTE | 2017-04-24 09:08 | PN ---
Progress Note (short form) - Note Progress Note: Patient seen and examined. POD#3 C/O Pain at the operated site. Had small BM last night. No blood. No black stool. Denies chest pain, shortness of breath, palpitation or dizziness. Awaiting cbc. If H/H stable then will dc back to [facility] today. Limitations to Obtaining History: No Limitations - Past Medical History [employer]ERK: Yes: Dementia Cardiovascular: Yes: HTN - Smoking History Smoking history: Never smoked Have you smoked in the past 12 months: No - Alcohol/Substance Use Hx Alcohol Use: No Home Medications - Allergies Allergies/Adverse Reactions: Allergies Allergy/AdvReac Type Severity Reaction Status Date / Time No Known Allergies Allergy Verified 04/20/17 20:44 - Home Medications Home Medications: Ambulatory Orders Aa/Hydrolyzed Collagen, Whey [Lps Neutral Flavor Liquid] 30 ml PO DAILY Acetaminophen [Pain Relief] 650 mg PO TID PRN 04/20/17 Albuterol 2.5/Ipratropium 0.5 [Duoneb -] 1 neb IH TID 04/20/17 Ascorbic Acid [Vitamin C -] 500 mg PO TID 04/20/17 Bacitracin 30 gm TP DAILY 04/20/17 Clopidogrel Bisulfate [Plavix -] 75 mg PO DAILY 04/20/17 Docusate Sodium 100 mg PO HS 04/20/17 Famotidine 20 mg PO DAILY 04/20/17 Ferrous Sulfate 325 mg PO TID 04/20/17 Melatonin 6 mg PO HS 04/20/17 Memantine HCl [Namenda -] 5 mg PO BID 04/20/17 Multivit with Iron-Minerals [Complete Senior] 1 each PO DAILY 04/20/17 Nadolol 40 mg PO DAILY 04/20/17 Oxybutynin Chloride 5 mg PO BID 04/20/17 Oxycodone HCl 5 mg PO TID PRN 04/20/17 Sennosides [Senna] 8.6 mg PO HS 04/20/17 Sucralfate [Carafate -] 1 gm PO QID 04/20/17 Trazodone HCl 50 mg PO HS 04/20/17 Review of Systems - Review of Systems Constitutional: reports: Fever Eyes: reports: No Symptoms HENT: reports: No Symptoms Neck: reports: No Symptoms Cardiovascular: reports: No Symptoms Respiratory: reports: No Symptoms Gastrointestinal: reports: No Symptoms Genitourinary: reports: No Symptoms Musculoskeletal: reports: Extremity Pain, Joint Pain Neurological: reports: No Symptoms Endocrine: reports: No Symptoms Hematology/Lymphatic: reports: No Symptoms Psychiatric: reports: No Symptoms Physical Examination Vital Signs: Vital Signs Period Temp Pulse Resp BP Sys/Gonsalez Pulse Ox Last 24 Hr 97.9 F-98.8 F 68-75 16-19 101-135/50-69 95 Constitutional: Yes: Anxious Eyes: Yes: Conjunctiva Clear, PERRL HENT: Yes: Atraumatic, Normocephalic Neck: Yes: Supple, Trachea Midline Cardiovascular: Yes: Regular Rate and Rhythm Respiratory: Yes: Regular, CTA Bilaterally Gastrointestinal: Yes: Normal Bowel Sounds, Soft Musculoskeletal: Yes: Joint Swelling Edema: No Peripheral Pulses WNL: Yes Neurological: Yes: Alert, Oriented ...Motor Strength: WNL Psychiatric: Yes: WNL Labs: Imaging - Results Chest X-ray: Report Reviewed X-ray: Report Reviewed Problem List - Problems (1) Intertrochanteric fracture of left femur Assessment/Plan: S/P left gamma nailing. POD#3 Pain management. Physical therapy. Code(s): S72.142A - DISPLACED INTERTROCHANTERIC FRACTURE OF LEFT FEMUR, INIT (2) Hypertension Assessment/Plan: Continue Nadolol 40 mg daily. Low salt diet. Code(s): I10 - ESSENTIAL (PRIMARY) HYPERTENSION (3) Fever of unknown origin Assessment/Plan: Afebrile. Cultures negative. Code(s): R50.9 - FEVER, UNSPECIFIED (4) Hypokalemia Assessment/Plan: Repleted. Code(s): E87.6 - HYPOKALEMIA 5) Anemia. Lorraine-operative blood loss minimal. No bleeding per rectum reported. Check stool for occult blood. Continue iron tid Check cbc today. 6) UTI Culutres negative. Stop recephin. 7) Constipation Had small BM yesterday. Continue colace/senna/miralax. Patient gives h/o constipation in the past. 8) Hypokalemia Check potassium and replete if needed. If labs stable. DC back to [facility] today. Problem List - Problems (1) Intertrochanteric fracture of left femur Code(s): S72.142A - DISPLACED INTERTROCHANTERIC FRACTURE OF LEFT FEMUR, INIT (2) Hypertension Code(s): I10 - ESSENTIAL (PRIMARY) HYPERTENSION (3) Fever of unknown origin Code(s): R50.9 - FEVER, UNSPECIFIED (4) Hypokalemia Code(s): E87.6 - HYPOKALEMIA
[2017-04-24 09:12] LABS: BASOPHIL 0.2 % (0-2.0); EOSINOPHIL 2.4 % (0-4.5); MCHC 32.9 g/dl (32.0-36.0); MEAN CELL VOLUME 85.2 fl (80-96); MEAN PLT VOLUME 8.7 fl (7.5-11.1); NEUTROPHILS 75.6 % (42.8-82.8); PLATELET COUNT 199 K/MM3 (134-434); RDW 14.6 % (11.6-15.6); WHITE BLOOD COUNT 8.1 K/mm3 (4.0-10.0)
[2017-04-24 09:31] LABS: ANION GAP 9 (8-16); CALCIUM 8.7 mg/dL (8.5-10.1); CO2 24 mmol/L (21-32); CREATININE 0.6 mg/dL (0.55-1.02); GLUCOSE,RANDOM 127 mg/dL (74-106)
--- NOTE | 2017-04-24 10:02 | DS ---
Physical Examination Vital Signs: Vital Signs Temperature 98.3 F 04/24/17 05:00 Pulse Rate 74 04/24/17 05:00 Respiratory Rate 16 04/24/17 05:00 Blood Pressure 135/69 04/24/17 05:00 O2 Sat by Pulse Oximetry (%) 95 04/23/17 21:00 Labs: CBC, BMP 04/24/17 08:30 04/24/17 08:30 Discharge Summary Reason For Visit: HIP FRACTURE FEVER Current Active Problems Fever of unknown origin (Acute) Hip fracture (Acute) Hypertension (Acute) Hypokalemia (Acute) Intertrochanteric fracture of left femur (Acute) Condition: Fair - Instructions Referrals: Marbin Couch MD [Primary Care Provider] - - Home Medications Comprehensive Discharge Medication List: Ambulatory Orders Aa/Hydrolyzed Collagen, Whey [Lps Neutral Flavor Liquid] 30 ml PO DAILY Ferrous Sulfate 325 mg PO TID 04/20/17 Melatonin 6 mg PO HS 04/20/17 Memantine HCl [Namenda -] 5 mg PO BID 04/20/17 Multivit with Iron-Minerals [Complete Senior] 1 each PO DAILY 04/20/17 Nadolol 40 mg PO DAILY 04/20/17 Oxybutynin Chloride 5 mg PO BID 04/20/17 Acetaminophen [Tylenol .Regular Strength -] 650 mg PO Q4H PRN #60 tablet Albuterol 2.5/Ipratropium 0.5 [Duoneb -] 1 amp NEB TIDR #30 amp 04/24/17 Ascorbic Acid [Vitamin C -] 500 mg PO TID #90 tablet 04/24/17 Aspirin [ASA -] 81 mg PO DAILY #30 tablet 04/24/17 Bacitracin - [Bacitracin Topical Ointment -] 1 applic TP DAILY #30 tube Docusate Sodium [Colace -] 300 mg PO HS #30 tab 04/24/17 Enoxaparin [Lovenox -] 40 mg SQ DAILY #30 unit 04/24/17 Ferrous Sulfate [Feosol] 325 mg PO TID #90 tab 04/24/17 Memantine HCl [Namenda -] 5 mg PO BID #30 tab 04/24/17 Nadolol [Corgard -] 40 mg PO DAILY #30 tablet 08/04/17 Oxycodone HCl [Roxicodone -] 5 mg PO Q8H PRN #60 tablet MDD 3 04/24/17 Ranitidine [Zantac -] 150 mg PO BID #60 tablet 04/24/17 Sennosides [Senna -] 1 tab PO HS #30 tablet 04/24/17 Sucralfate [Carafate -] 1 gm PO QID #90 tablet 04/24/17 Trazodone HCl [Desyrel -] 50 mg PO HS #30 tablet 04/24/17
[2017-04-24] MEDS ORDERED: PT OWN MED DRAWER 7, Y5N ONE (10:25)
[2017-04-24] MEDS: MULTIVITAMINS THER W-MINERALS COMBO TABLET (FP) PO SCH (10:26)
[2017-04-24] MEDS: ASPIRIN 325 MG TABLET PO SCH (10:26)
[2017-04-24] MEDS: SUCRALFATE 1 GM TABLET (FP) PO SCH (10:26)
[2017-04-24] MEDS: MEMANTINE HCL 5 MG TABLET (UD) PO SCH (10:26)
[2017-04-24] MEDS: RANITIDINE HCL 150 MG TABLET (FP) PO SCH (10:26)
[2017-04-24] MEDS: ENOXAPARIN NA (PORCINE) 40 MG/0.4 ML DISP.SYRIN SQ SCH (10:26)
[2017-04-24] MEDS: NADOLOL 40 MG TABLET (FP) PO SCH (10:27)
[2017-04-24] MEDS: ACETAMINOPHEN 325 MG TABLET (FP) PO PRN (10:27)
[2017-04-24] MEDS: BACITRACIN 15 GM TUBE TOPICAL OINTMENT TP SCH (10:31)
--- NOTE | 2017-04-24 11:10 | PN ---
Progress Note (short form) - Note Progress Note: Ortho Pt seen and examined s/p left IM gamma nail pod #3 Selected Entries 04/24/17 05:00 Temperature 98.3 F Pulse Rate 74 Respiratory 16 Rate Blood Pressure 135/69 Laboratory Tests 04/24/17 08:30 WBC 8.1 Hgb 7.9 L Hct 24.1 L Plt Count 199 dressing c/d/i, calf soft, nt nvi a/p PT dvt ppx pain control d/c planning
[2017-04-24 12:20] VITALS: BP 146/95; TEMP 98.6
== END 2017-04-24 14:26 | DRG 482 ==
LOC: JER 18:33 → JERBED 04-21 03:07 → UNDOADMIN 04-21 03:14 → JERBED 04-21 03:14 → J6S 04-21 21:07
PROVIDERS: ADMIT Internal Medicine; ATTEND Internal Medicine
PROC: 0QS706Z Reposition Left Upper Femur with Intramedullary Internal Fixation Device, Open Approach (ICD-10-PCS; principal; 2017-04-21 12:30)
DX: S72.142A Displaced intertrochanteric fracture of left femur, initial encounter for closed fracture (principal); W19.XXXA Unspecified fall, initial encounter; Y93.9 Activity, unspecified; Y92.89 Other specified places as the place of occurrence of the external cause; Y99.9 Unspecified external cause status; E87.6 Hypokalemia; I10 Essential (primary) hypertension; R50.9 Fever, unspecified; D64.9 Anemia, unspecified; K59.00 Constipation, unspecified; F03.90 Unspecified dementia, unspecified severity, without behavioral disturbance, psychotic disturbance, mood disturbance, and anxiety; K21.9 Gastro-esophageal reflux disease without esophagitis
CPT/HCPCS: 36415; 70450-TC; 71010-TC; 73523-TC; 76000-TC; 80048; 80053; 81003; 81015; 82803; 83605; 83735; 84100; 84484; 85025; 85027; 85610; 85730; 86850; 86900; 86901; 87040; 87086; 93005; 93010; 94640; 94760; 97116-GP; 97161-GP; 99285-25

== ENCOUNTER 2020-06-20 11:07 | Emergency (ER) | payer OTHER ==
[2020-06-20 11:41] VITALS: BP 161/81; PULSE 72; TEMP 98.6; BMI 19.6
--- NOTE | 2020-06-20 12:45 | PDOC ---
Documentation entered by Bonnie Murguia SCRIBE, acting as scribe for Isabelle Hughes MD. Isabelle Hughes MD: This documentation has been prepared by the Shantal salgado Xhesika, SCRIBE, under my direction and personally reviewed by me in its entirety. I confirm that the documentation accurately reflects all work, treatment, procedures, and medical decision making performed by me. History of Present Illness - General Chief Complaint: Wound Stated Complaint: EDEMA Time Seen by Provider: 06/20/20 11:16 History Source: Patient Exam Limitations: No Limitations - History of Present Illness Initial Comments: 06/20/20 11:17 79 year old female with a pmh of HTN, Dementia, GERD, PVD, COPD who presents to the ED BIBA from [facility] sent by Dr. Couch for BLE cellulites that failed outpatient abx. Pt is refusing all care and keeps stating " I am not sick enough to be here and get IV antibiotics." Allergies: NKDA PCP: Dr. Couch Past History - Medical History Allergies/Adverse Reactions: Allergies Allergy/AdvReac Type Severity Reaction Status Date / Time No Known Allergies Allergy Verified 06/20/20 11:09 Home Medications: Ambulatory Orders Aa/Hydrolyzed Collagen, Whey [Lps Neutral Flavor Liquid] 30 ml PO DAILY 04/20/17 Ferrous Sulfate 325 mg PO TID 04/20/17 Melatonin 6 mg PO HS 04/20/17 Memantine HCl [Namenda -] 5 mg PO BID 04/20/17 Multivit with Iron,Minerals [Complete Senior] 1 each PO DAILY 04/20/17 Nadolol 40 mg PO DAILY 04/20/17 Oxybutynin Chloride 5 mg PO BID 04/20/17 Acetaminophen [Tylenol .Regular Strength -] 650 mg PO Q4H PRN #60 tablet 04/24/17 Albuterol 2.5/Ipratropium 0.5 [Duoneb -] 1 amp NEB TIDR #30 amp 04/24/17 Ascorbic Acid [Vitamin C -] 500 mg PO TID #90 tablet 04/24/17 Aspirin [ASA -] 81 mg PO DAILY #30 tablet 04/24/17 Bacitracin - [Bacitracin Topical Ointment -] 1 applic TP DAILY #30 tube 04/24/17 Docusate Sodium [Colace -] 300 mg PO HS #30 tab 04/24/17 Enoxaparin [Lovenox -] 40 mg SQ DAILY #30 unit 04/24/17 Ferrous Sulfate [Feosol] 325 mg PO TID #90 tab 04/24/17 Memantine HCl [Namenda -] 5 mg PO BID #30 tab 04/24/17 Nadolol [Corgard -] 40 mg PO DAILY #30 tablet 04/24/17 Ranitidine [Zantac -] 150 mg PO BID #60 tablet 04/24/17 Sennosides [Senna -] 1 tab PO HS #30 tablet 04/24/17 Sucralfate [Carafate -] 1 gm PO QID #90 tablet 04/24/17 oxyCODONE HCL [Roxicodone -] 5 mg PO Q8H PRN #60 tablet MDD 3 04/24/17 traZODone HCL [Desyrel -] 50 mg PO HS #30 tablet 04/24/17 Cardiac Disorders: (hypokalemia) COPD: Yes Dementia: Yes GI Disorders: Yes (GERD) HTN: Yes - Psycho-Social/Smoking History Smoking History: Never smoked Have you smoked in the past 12 months: No Review of Systems - Review of Systems Able to Perform ROS?: No Comments:: 06/20/20 11:18 Pt refusing to answer any questions *Physical Exam - Physical Exam 06/20/20 12:42 Pt. declined physical exam despite repeated attempts to examine patient and explain why it is necessary to examine her in order to offer treatment. Medical Decision Making - Medical Decision Making 06/20/20 12:43 Discussed with patient at length r/b/a of leaving without being evaluated however patient is insistent that she go back and does not need to stay in the hospital and is unwiling to stay even for a single dose of IV abx or evaluation. Pt. is Aox3 and responds to questions appropriately and verbalized her understanding. Spoke with Dr. Couch who also tried to explain to the patient improtance of IV abx however patient still declining and insisting on going home. Patient Aox3 and deemed to have decisional capacity. Will d/c back to residence, recommend PMD f/u. Return precautions given. Discharge - Discharge Information Problems reviewed: Yes Clinical Impression/Diagnosis: Cellulitis Qualifiers: Site of cellulitis: extremity Site of cellulitis of extremity: lower extremity Laterality: unspecified laterality Qualified Code(s): L03.119 - Cellulitis of unspecified part of limb Condition: Stable Disposition: LEFT BEFORE [facility] ONEILL - Follow up/Referral Referrals: Marbin Couch MD [Primary Care Provider] - - Patient Discharge Instructions Additional Instructions: It is recommended that you be admitted to the hospital to receive IV antibiotics for treatment of a skin infection of your feet. You did not want to stay for an evaluation and treatment. Return to the ED for new or worsening symptoms. You should follow up with your PMD. - Post Discharge Activity
== END 2020-06-20 16:03 ==
LOC: JER 11:07
DX: L03.119 Cellulitis of unspecified part of limb (principal)
CPT/HCPCS: 99282-25

== ENCOUNTER 2023-12-30 14:08 | Emergency (ER) | payer OTHER ==
[2023-12-30 14:34] VITALS: BMI 15.9
[2023-12-30 17:07] LABS: BASO % 0.1 % (0-2.0); EOS % 0.1 % (0-4.5); HEMOGLOBIN 12.8 GM/dL (10.7-15.3); LYMPH % 8.1 % (8-40); MCH 30.1 pg (25.7-33.7); MCHC 33.7 g/dl (32.0-36.0); MEAN CELL VOLUME 89.1 fl (80-96); MEAN PLT VOLUME 9.9 fl (7.5-11.1); MONO % 6.4 % (3.8-10.2); NEUT % 85.3 % (42.8-82.8); PLATELET COUNT 204 10^3/uL (134-434); RBC 4.26 M/mm3 (3.60-5.2); RDW 15.2 % (11.6-15.6); WHITE BLOOD COUNT 11.3 K/mm3 (4.0-10.0)
[2023-12-30 17:17] LABS: INR 1.17 (0.83-1.09); PROTHROMBIN TIME (PATIENT) 13.5 SEC (9.7-13.0)
[2023-12-30 17:20] LABS: ACTIVATED PTT 37.2 SECONDS (25.2-36.5)
[2023-12-30 17:26] LABS: POTASSIUM 4.2 mmol/L (3.5-5.1)
[2023-12-30 17:29] LABS: ALBUMIN 3.6 g/dl (3.4-5.0); BLOOD UREA NITROGEN 52.4 mg/dL (7-18); CALCIUM 9.9 mg/dL (8.5-10.1); MAGNESIUM 2.8 mg/dL (1.8-2.4)
[2023-12-30 17:34] LABS: TOT PROT 7.9 g/dl (6.4-8.2)
[2023-12-30 17:40] LABS: BILIRUBIN,TOTAL 0.4 mg/dL (0.2-1)
[2023-12-30] MEDS: LACTATED RINGERS SOLUTION 1000 ML INFUS.BAG IV ONE (19:19)
[2023-12-30] MEDS ORDERED: SULFAMETHOXAZOLE/TRIMETHOPRIM 800MG/160MG D.S. TABLET ONE (19:41)
[2023-12-30] MEDS: SULFAMETHOXAZOLE/TRIMETHOPRIM 800MG/160MG D.S. TABLET PO ONE (19:47)
[2023-12-30 22:41] VITALS: BP 123/62; PULSE 62; RESP 18; TEMP 97.6
== END 2023-12-31 03:34 ==
LOC: JER 14:08
DX: N39.0 Urinary tract infection, site not specified (principal); R82.998 Other abnormal findings in urine; W19.XXXA Unspecified fall, initial encounter; Y92.009 Unspecified place in unspecified non-institutional (private) residence as the place of occurrence of the external cause
CPT/HCPCS: 36415; 70450-TC; 71045-TC-FY; 72125-TC; 72170-TC-FY; 80053; 83735; 84484; 85025; 85610; 85730; 87086; 87186; 93005; 93010; 99285-25

== ENCOUNTER 2024-07-13 11:36 | Emergency (ER) | payer OTHER ==
[2024-07-13 12:02] VITALS: BP 113/57; PULSE 62; RESP 16; TEMP 97.7; BMI 20.7
== END 2024-07-13 16:52 ==
LOC: JER 11:36
DX: S00.83XA Contusion of other part of head, initial encounter (principal); W22.09XA Striking against other stationary object, initial encounter
CPT/HCPCS: 70450-TC; 99284-25

== ENCOUNTER 2025-02-15 14:27 | Emergency (ER) | payer OTHER ==
[2025-02-15 14:57] VITALS: TEMP 97.6; BMI 17.9
[2025-02-15 16:35] LABS: VENOUS O2 SATURATION 50.2 % (70-80); VENOUS PCO2 47.2 mmHg (38-52); VENOUS PH 7.357 (7.310-7.410)
[2025-02-15 16:49] LABS: ABSOLUTE IMMATURE GRANULOCYTES 0.04 x10^3/uL (0.0-0.031); BASOPHILS # 0.02 x10^3/uL (0.01-0.08); EOSINOPHIL % 1.1 % (0.7-5.8); EOSINOPHILS # 0.12 x10^3/uL (0.04-0.36); HEMATOCRIT 39.7 % (34.1-44.9); HEMOGLOBIN 12.1 g/dL (11.2-15.7); MCHC 30.5 g/dl (32.2-35.5); MEAN CELL VOLUME 96.8 fl (79.4-94.8); MEAN PLT VOLUME 12.1 fl (9.4-12.3); MONOCYTE # 1.29 x10^3/uL (0.24-0.86); MONOCYTE % 12.3 % (4.7-12.5); PLATELET COUNT 202 x10^3/uL (182-369); RDW 13.5 % (12.5-17.0)
[2025-02-15 17:24] LABS: POTASSIUM 4.9 mmol/L (3.5-5.1)
[2025-02-15 17:26] LABS: ALBUMIN 3.4 g/dl (3.4-5.0); BLOOD UREA NITROGEN 39.2 mg/dL (7-18); CALCIUM 10.2 mg/dL (8.5-10.1)
[2025-02-15 17:30] LABS: CREATININE 1.1 mg/dL (0.55-1.3)
[2025-02-15 17:31] LABS: BILIRUBIN,TOTAL 0.6 mg/dL (0.2-1); EPI CELLS 24 /uL (0-25.1); HYALINE CASTS 1 /uL (0-3.1); PH,URINE 7.5 (5.0-8.0); TOT PROT 8.3 g/dl (6.4-8.2); URINE APPEARANCE CLEAR; URINE BACTERIA 28 /uL (0-1359); URINE BILIRUBIN NEGATIVE (NEGATIVE); URINE COLOR YELLOW; URINE GLUCOSE (UA) NEGATIVE (NEGATIVE); URINE KETONE NEGATIVE (NEGATIVE); URINE LEUK ESTERASE TRACE (NEGATIVE); URINE NITRITE NEGATIVE (NEGATIVE); URINE PROTEIN 2+ (NEGATIVE); URINE RBC 82 /uL (0-23.9); URINE WBC 15 /uL (0-25.8)
[2025-02-15] MEDS: SODIUM CHLORIDE 500 ML IV STA (18:17)
[2025-02-15 19:53] VITALS: PULSE 73; RESP 18
[2025-02-15 20:06] VITALS: BP 147/83
[2025-02-15 20:35] LABS: N-TERMINAL BNP 3796.9 pg/ml (5-450)
== END 2025-02-15 21:40 ==
LOC: JER 14:27
PROC: 3E0337Z Introduction of Electrolytic and Water Balance Substance into Peripheral Vein, Percutaneous Approach (ICD-10-PCS; principal; 2025-02-15)
DX: R63.8 Other symptoms and signs concerning food and fluid intake (principal); R94.31 Abnormal electrocardiogram [ECG] [EKG]; R09.02 Hypoxemia
CPT/HCPCS: 0241U-QW; 36415; 71045-TC-FY; 80053; 81003; 82803; 83605; 83880; 85025; 87040; 87086; 87186; 93005; 93010; 99285-25

== ENCOUNTER 2025-03-22 16:12 | Inpatient (IN) | payer OTHER ==
[2025-03-22 16:25] VITALS: BMI 14.7
[2025-03-22] MEDS: LACTATED RINGERS SOLUTION 1000 ML INFUS.BAG IV ONE (17:27)
[2025-03-22 17:47] LABS: EPI CELLS >36 /uL (0-25.1); HYALINE CASTS 29 /uL (0-3.1); URINE APPEARANCE TURBID; URINE BACTERIA >9,000 /uL (0-1359); URINE BILIRUBIN NEGATIVE (NEGATIVE); URINE COLOR ORANGE; URINE GLUCOSE (UA) NEGATIVE (NEGATIVE); URINE KETONE TRACE (NEGATIVE); URINE LEUK ESTERASE 3+ (NEGATIVE); URINE NITRITE NEGATIVE (NEGATIVE); URINE PROTEIN 3+ (NEGATIVE); URINE UROBILINOGEN 1.0 mg/dL (0.2-1.0); URINE WBC 12000 /uL (0-25.8)
[2025-03-22 18:12] LABS: ABSOLUTE IMMATURE GRANULOCYTES 0.08 x10^3/uL (0.0-0.031); BASOPHILS # 0.05 x10^3/uL (0.01-0.08); EOSINOPHIL % 0.7 % (0.7-5.8); EOSINOPHILS # 0.14 x10^3/uL (0.04-0.36); MCHC 30.3 g/dl (32.2-35.5); MEAN CELL VOLUME 100.2 fl (79.4-94.8); MEAN PLT VOLUME 14.1 fl (9.4-12.3); MONOCYTE # 1.46 x10^3/uL (0.24-0.86); MONOCYTE % 7.3 % (4.7-12.5); RDW 14.6 % (12.5-17.0)
[2025-03-22 18:17] LABS: BG HCT 44.0 % (32.4-45.2); VENOUS BASE EXCESS -4.9 mmol/L (-2-2); VENOUS O2 SATURATION 28.4 % (70-80); VENOUS PCO2 53.7 mmHg (38-52); VENOUS PH 7.249 (7.310-7.410)
[2025-03-22 18:20] LABS: INR 1.13 (0.83-1.09); PROTHROMBIN TIME (PATIENT) 12.3 SEC (9.7-13.0)
[2025-03-22 18:23] LABS: ACTIVATED PTT 31.1 SECONDS (25.2-36.5)
[2025-03-22 18:28] LABS: URINE RBC 319.3 /uL (0-23.9)
[2025-03-22 18:37] LABS: GLUCOSE,RANDOM 92 mg/dL (74-106)
[2025-03-22 18:38] LABS: CO2 22 mmol/L (21-32)
[2025-03-22 18:40] LABS: CREATININE 3.9 mg/dL (0.55-1.3); SGOT/AST 111 U/L (15-37)
[2025-03-22 18:42] LABS: TOT PROT 7.9 g/dl (6.4-8.2)
[2025-03-22 18:43] LABS: ALK PHOS 89 U/L (45-117)
[2025-03-22] MEDS ORDERED: CEFTRIAXONE 1 GM/50 ML BAG ONE (18:43)
[2025-03-22 18:50] LABS: LACTIC ACID 2.3 mmol/L (0.4-2.0); SGPT/ALT 26 U/L (13-61)
[2025-03-22] MEDS: ALBUTEROL SO4 2.5/IPRATROPIUM 0.5 INH SOL 3 ML VIAL.NEB. NEB ONE (18:54)
[2025-03-22] MEDS: CEFTRIAXONE 1 GM in DEXTROSE 5%-WATER - 100 ML IVPB ONE (18:54)
[2025-03-22 19:41] LABS: HCV DIAGNOSTIC IN-HOUSE W/RFLX NON-REACTIVE (NONREACTIVE); HIV INTERPRETATION NEGATIVE (NEGATIVE)
[2025-03-22 19:57] LABS: CO2 25 mmol/L (21-32); GLUCOSE,RANDOM 104 mg/dL (74-106)
[2025-03-22 20:00] LABS: CREATININE 3.5 mg/dL (0.55-1.3)
[2025-03-22 20:07] LABS: LACTIC ACID 2.9 mmol/L (0.4-2.0)
[2025-03-22] MEDS: VANCOMYCIN/WATER FOR INJ (PEG) 750 MG/150 ML BAG IVPB ONE (23:00)
[2025-03-22 23:10] LABS: CO2 20 mmol/L (21-32); GLUCOSE,RANDOM 99 mg/dL (74-106)
[2025-03-22 23:14] LABS: CREATININE 3.2 mg/dL (0.55-1.3)
[2025-03-22 23:18] LABS: LACTIC ACID 3.3 mmol/L (0.4-2.0)
[2025-03-23] MEDS: SODIUM CHLORIDE 500 ML IV ONE (01:00)
[2025-03-23] MEDS: VANCOMYCIN/WATER FOR INJ (PEG) 750 MG/150 ML BAG IVPB ONE (01:44)
[2025-03-23 02:01] LABS: EPI CELLS 16 /uL (0-25.1); HYALINE CASTS 1 /uL (0-3.1); URINE APPEARANCE CLOUDY; URINE BACTERIA 679 /uL (0-1359); URINE BILIRUBIN NEGATIVE (NEGATIVE); URINE COLOR YELLOW; URINE GLUCOSE (UA) NEGATIVE (NEGATIVE); URINE KETONE TRACE (NEGATIVE); URINE LEUK ESTERASE 3+ (NEGATIVE); URINE NITRITE NEGATIVE (NEGATIVE); URINE PROTEIN 2+ (NEGATIVE); URINE RBC 94 /uL (0-23.9); URINE UROBILINOGEN 0.2 mg/dL (0.2-1.0); URINE WBC 1054 /uL (0-25.8)
[2025-03-23] MEDS: PIPERACILLIN/TAZOB 2.25 GM 2.25 GM in DEXTROSE 5%-WATER - 50 ML IVPB SCH (02:57)
[2025-03-23] MEDS ORDERED: ACETAMINOPHEN 325 MG TABLET (FP) PO PRN (03:51)
[2025-03-23] MEDS ORDERED: HEPARIN NA (PORCINE) 5,000 UNITS/ML 1ML VIAL SQ SCH (06:00)
[2025-03-23] MEDS: ASCORBIC ACID 500 MG TABLET (FP) PO SCH (06:16)
[2025-03-23] MEDS ORDERED: MELATONIN 5 MG, MELATONIN 1 MG PO PRN (06:27)
[2025-03-23] MEDS ORDERED: MELATONIN 5 MG, MELATONIN 1 MG PO SCH (06:28)
[2025-03-23] MEDS: ALBUTEROL SO4 2.5/IPRATROPIUM 0.5 INH SOL 3 ML VIAL.NEB. NEB SCH (06:32)
[2025-03-23 06:49] LABS: MCHC 30.1 g/dl (32.2-35.5); MEAN CELL VOLUME 101.6 fl (79.4-94.8); MEAN PLT VOLUME 13.0 fl (9.4-12.3); RDW 14.4 % (12.5-17.0)
[2025-03-23 06:52] LABS: IMMATURE PLATELET FRACTION # 6.40 x10^3/uL; MCHC 29.7 g/dl (32.2-35.5); MEAN CELL VOLUME 101.6 fl (79.4-94.8); MEAN PLT VOLUME 13.2 fl (9.4-12.3); RDW 14.3 % (12.5-17.0)
[2025-03-23 07:02] LABS: INR 1.15 (0.83-1.09); PROTHROMBIN TIME (PATIENT) 12.5 SEC (9.7-13.0)
[2025-03-23 07:05] LABS: ACTIVATED PTT 30.5 SECONDS (25.2-36.5)
[2025-03-23 07:32] LABS: GLUCOSE,RANDOM 90 mg/dL (74-106)
[2025-03-23 07:33] LABS: CO2 25 mmol/L (21-32)
[2025-03-23 07:35] LABS: CREATININE 2.8 mg/dL (0.55-1.3); SGOT/AST 23 U/L (15-37); SGPT/ALT 16 U/L (13-61)
[2025-03-23 07:37] LABS: TOT PROT 6.2 g/dl (6.4-8.2)
[2025-03-23 07:38] LABS: ALK PHOS 77 U/L (45-117)
[2025-03-23] MEDS ORDERED: MAGNESIUM SULF 50% (8.12 MEQ/2 ML-1 GM VIAL) IVPB ONE (08:22)
[2025-03-23] MEDS: HEPARIN NA (PORCINE) 5,000 UNITS/ML 1ML VIAL SQ SCH (10:45)
[2025-03-23] MEDS: POLYETHYLENE GLYCOL (HEALTHYLAX) 3350 17 GM PACKET PO SCH (10:45)
[2025-03-23] MEDS: FERROUS SO4 325 MG TABLET (FP) PO SCH (10:45)
[2025-03-23] MEDS: MEMANTINE HCL 10 MG TABLET (FP) PO SCH ×2 (11:06→11:51)
[2025-03-23] MEDS: MULTIVITAMINS THER W-MINERALS COMBO TABLET (FP) PO SCH ×2 (11:07→11:51)
[2025-03-23] MEDS: PNEUMOC 20-VAL CONJ-DIP CRM/PF 0.5 ML SYRINGE IM ONE (11:08)
[2025-03-23] MEDS: SODIUM CHLORIDE 0.45% 1,000 ML IV SCH (18:00)
[2025-03-23] MEDS: MELATONIN 5 MG, MELATONIN 1 MG PO SCH (21:47)
[2025-03-23] MEDS: FAMOTIDINE 20 MG TABLET PO SCH (21:47)
[2025-03-23] MEDS: DEXTROSE 50%-WATER 25 GM/50 ML DISP.SYRIN IVPUSH PRN (22:00)
[2025-03-23] MEDS ORDERED: PATIENT'S OWN MEDICATION (NON-FORMULARY) (Melatonin [Melatonin] 3 MG Tablet) PO SCH (22:00)
[2025-03-24 07:00] LABS: MCHC 29.7 g/dl (32.2-35.5); MEAN CELL VOLUME 101.1 fl (79.4-94.8); MEAN PLT VOLUME 13.0 fl (9.4-12.3); RDW 14.5 % (12.5-17.0)
[2025-03-24 07:23] LABS: CO2 24 mmol/L (21-32); GLUCOSE,RANDOM 104 mg/dL (74-106)
[2025-03-24 07:25] LABS: CREATININE 2.2 mg/dL (0.55-1.3)
[2025-03-24] MEDS: DEXTROSE 5%-WATER - 1,000 ML IV SCH (09:14)
[2025-03-24] MEDS: PIPERACILLIN/TAZOB 2.25 GM 2.25 GM in DEXTROSE 5%-WATER - 50 ML IVPB SCH (15:58)
[2025-03-24] MEDS: CEFTRIAXONE 1 GM in DEXTROSE 5%-WATER - 50 ML IVPB SCH (17:48)
[2025-03-25 06:43] LABS: MEAN CELL VOLUME 95.9 fl (79.4-94.8); RDW 14.4 % (12.5-17.0)
[2025-03-25 06:45] LABS: IMMATURE PLATELET FRACTION # 7.40 x10^3/uL; MCHC 31.4 g/dl (32.2-35.5); MEAN PLT VOLUME 13.4 fl (9.4-12.3)
[2025-03-25 07:07] LABS: CO2 25.0 mmol/L (21-32); GLUCOSE,RANDOM 121.0 mg/dL (74-106)
[2025-03-25 07:09] LABS: CREATININE 1.2 mg/dL (0.55-1.3)
[2025-03-25] MEDS: DEXTROSE 5%-0.45% SALINE 1,000 ML IV SCH (12:00)
[2025-03-25 19:17] VITALS: RESP 18
[2025-03-25] MEDS ORDERED: ACETAMINOPHEN 325 MG TABLET (FP) PO PRN (21:52)
[2025-03-25] MEDS ORDERED: DEXTROSE 50%-WATER 25 GM/50 ML DISP.SYRIN IVPUSH PRN (21:52)
[2025-03-25] MEDS: MELATONIN 5 MG, MELATONIN 1 MG PO SCH (22:09)
[2025-03-25] MEDS: FAMOTIDINE 20 MG TABLET PO SCH (22:09)
[2025-03-25] MEDS: HEPARIN NA (PORCINE) 5,000 UNITS/ML 1ML VIAL SQ SCH (22:09)
[2025-03-25] MEDS: ASCORBIC ACID 500 MG TABLET (FP) PO SCH (22:09)
[2025-03-26] MEDS: ALBUTEROL SO4 2.5/IPRATROPIUM 0.5 INH SOL 3 ML VIAL.NEB. NEB SCH (07:33)
[2025-03-26 09:17] LABS: MEAN CELL VOLUME 95.2 fl (79.4-94.8); RDW 14.2 % (12.5-17.0)
[2025-03-26 09:18] LABS: IMMATURE PLATELET FRACTION # 10.10 x10^3/uL; MCHC 31.9 g/dl (32.2-35.5)
[2025-03-26 09:46] LABS: CO2 24.0 mmol/L (21-32); GLUCOSE,RANDOM 88.0 mg/dL (74-106)
[2025-03-26 09:49] LABS: CREATININE 1.0 mg/dL (0.55-1.3); SGOT/AST 27.0 U/L (15-37); SGPT/ALT 14.0 U/L (13-61); TOT PROT 5.5 g/dl (6.4-8.2)
[2025-03-26 09:51] LABS: ALK PHOS 68.0 U/L (45-117)
[2025-03-26] MEDS: CEFTRIAXONE 1 GM in DEXTROSE 5%-WATER - 50 ML IVPB SCH (10:30)
[2025-03-26] MEDS: FERROUS SO4 325 MG TABLET (FP) PO SCH (10:31)
[2025-03-26] MEDS: POLYETHYLENE GLYCOL (HEALTHYLAX) 3350 17 GM PACKET PO SCH (10:31)
[2025-03-26] MEDS: MEMANTINE HCL 10 MG TABLET (FP) PO SCH (10:31)
[2025-03-26] MEDS: MULTIVITAMINS THER W-MINERALS COMBO TABLET (FP) PO SCH (10:31)
[2025-03-26] MEDS: AZTREONAM 1 GM in DEXTROSE 5%-WATER - 50 ML IVPB SCH (12:55)
[2025-03-27 08:30] LABS: ABSOLUTE IMMATURE GRANULOCYTES 0.01 x10^3/uL (0.0-0.031); BASOPHILS # 0.01 x10^3/uL (0.01-0.08); EOSINOPHIL % 2.8 % (0.7-5.8); EOSINOPHILS # 0.17 x10^3/uL (0.04-0.36); MCHC 31.4 g/dl (32.2-35.5); MEAN CELL VOLUME 95.0 fl (79.4-94.8); MEAN PLT VOLUME 12.5 fl (9.4-12.3); MONOCYTE # 0.54 x10^3/uL (0.24-0.86); MONOCYTE % 8.9 % (4.7-12.5); RDW 14.4 % (12.5-17.0)
[2025-03-27 09:26] LABS: CO2 24.0 mmol/L (21-32); CREATININE 0.9 mg/dL (0.55-1.3); GLUCOSE,RANDOM 89.0 mg/dL (74-106)
[2025-03-27 11:01] VITALS: BP 101/64; PULSE 72; TEMP 97.5
[2025-03-27] MEDS ORDERED: CEFTRIAXONE 1 GM in DEXTROSE 5%-WATER - 50 ML IVPB SCH (12:00)
== END 2025-03-27 16:45 | DRG 871 ==
LOC: JER 16:12 → JERBED 18:41 → J6S 23:42 → J4S 03-23 05:31 → J6S 03-25 21:46
PROVIDERS: ADMIT Student in an Organized Health Care Education/Training Program; ATTEND Internal Medicine
DX: A41.9 Sepsis, unspecified organism (principal); E43 Unspecified severe protein-calorie malnutrition; G93.41 Metabolic encephalopathy; R53.2 Functional quadriplegia; R65.21 Severe sepsis with septic shock; J44.1 Chronic obstructive pulmonary disease with (acute) exacerbation; E87.20 Acidosis, unspecified; N17.9 Acute kidney failure, unspecified; N39.0 Urinary tract infection, site not specified; Z68.1 Body mass index [BMI] 19.9 or less, adult; E87.0 Hyperosmolality and hypernatremia; E87.5 Hyperkalemia; I10 Essential (primary) hypertension; I73.9 Peripheral vascular disease, unspecified; R13.10 Dysphagia, unspecified; D69.6 Thrombocytopenia, unspecified; E86.0 Dehydration; L89.151 Pressure ulcer of sacral region, stage 1
CPT/HCPCS: 36415; 71045-TC-FY; 76775-TC; 80048; 80053; 80076; 81003; 82803; 82962; 83605; 83735; 83880; 84100; 84484; 85025; 85027; 85610; 85730; 86803; 87040; 87081; 87086; 87389; 87637-QW; 93005; 93010; 93306-TC; 94640; 99291; G0480